=== PATIENT | female | born 1990 | race Caucasian/White ===

== ENCOUNTER 2019-08-15 18:37 | Emergency (ER) | payer OTHER ==
[~2019-08-15] VITALS: Ht 170.2 cm; Wt 74.8 kg
[2019-08-15 18:40] VITALS: Ht 170.2 cm; Wt 74.8 kg
[2019-08-15 19:35] VITALS: BP 123/67
== END 2019-08-15 19:35 | disposition home or self-care (01) ==
LOC: ED 18:37
DX: R07.89 Other chest pain (principal); R45.0 Nervousness
CPT/HCPCS: 82962; Q0092